=== PATIENT | female | born 1975 | race Caucasian/White ===

== ENCOUNTER 2019-04-14 15:39 | Emergency (ER) | payer OTHER ==
[~2019-04-14] VITALS: Ht 165.1 cm; Wt 68.0 kg
[~2019-04-14 15:39] MED LIST: NORVASC10 MG PO
[2019-04-14] MEDS ORDERED: NORVASC5 MG (15:56)
[2019-04-14] MEDS ORDERED: FENOFIBRATE54 MG (15:57)
[2019-04-14] MEDS ORDERED: HYZAAR 100-251 EACH (15:57)
== END 2019-04-14 17:48 | disposition home or self-care (01) ==
LOC: ER 15:39 → EMR PED 15:39 → ER 16:07
DX: N20.0 Calculus of kidney (principal); R16.0 Hepatomegaly, not elsewhere classified; R10.32 Left lower quadrant pain